=== PATIENT | male | born 2000 | race Two or more races ===

== ENCOUNTER 2021-03-06 13:09 | Inpatient (IN) | payer OTHER ==
[~2021-03-06] VITALS: Ht 180.3 cm; Wt 100.7 kg
[2021-03-06] MEDS ORDERED: LORazepam 2 MG TABLET PO PRN (18:45)
[2021-03-06] MEDS ORDERED: ZOLPIDEM TARTRATE 10 MG TABLET PO PRN (18:45)
[2021-03-06] MEDS ORDERED: HALOPERIDOL 5 MG TABLET PO PRN (18:45)
[2021-03-06 18:53] VITALS: BP 142/86
[2021-03-06] MEDS: TraZODone HCL 100 MG TABLET PO SCH (20:59)
[2021-03-07 07:00] LABS: BASOPHILS % (AUTO) 0.5 % (0.0-2.0); EOSINOPHILS % (AUTO) 2.3 % (1.0-6.0); HEMATOCRIT 45.7 % (41-53); HEMOGLOBIN 15.5 g/dL (13.5-17.5); LYMPHOCYTES # (AUTO) 2.1 K/uL (1.0-4.8); LYMPHOCYTES % (AUTO) 36.9 % (22.0-44.0); MEAN CORPUSCULAR HEMOGLOBIN 29.5 pg (26.0-34.0); MEAN CORPUSCULAR HGB CONC 33.9 G/dL (31.0-37.0); MEAN CORPUSCULAR VOLUME 87 fL (80-100); MONOCYTES # (AUTO) 0.5 K/uL (0.1-1.0); MONOCYTES % (AUTO) 9.3 % (2.0-9.0); NEUTROPHILS # (AUTO) 2.8 K/uL (1.8-7.7); PLATELET COUNT (AUTO) 294 K/uL (150-450); RED BLOOD CELL COUNT(AUTO) 5.25 MIL/uL (4.50-5.90); RED CELL DISTRIBUTION WIDTH 13.1 % (11.5-14.5)
[2021-03-07 07:18] LABS: ALANINE AMINOTRANSFERASE 55 U/L (12-78); ALBUMIN 4.1 g/dL (3.4-5.0); ALKALINE PHOSPHATASE 60 U/L (46-116); ANION GAP 7 mmol/L (8-16); ASPARTATE AMINOTRANSFERASE 21 U/L (15-37); BILIRUBIN,TOTAL 0.8 mg/dL (0.1-1.0); CALCIUM, TOTAL 9.2 mg/dL (8.8-10.5); CARBON DIOXIDE 28 mmol/L (22-29); CHLORIDE 104 mmol/L (98-107); CHOL/HDL RATIO 7.1 (4.2-7.3); CHOLESTEROL 207 mg/dL (131-200); CREATININE 0.98 mg/dL (0.60-1.30); GLOMERULAR FILTR. RATE CALC > 60 mL/min (>60); GLUCOSE,RANDOM 87 mg/dL (70-110); HDL CHOLESTEROL 29 mg/dL (40-60); LDL CHOL (CALC.) 137 mg/dL (0-130); POTASSIUM 4.4 mmol/L (3.5-5.1); SODIUM SERUM 139 mmol/L (136-145); THYROID STIMULATING HORMONE 0.61 uIU/mL (0.36-3.74); TOTAL PROTEIN, SERUM 7.8 g/dL (6.4-8.2); TRIGLYCERIDES 206 mg/dL (15-150); UREA NITROGEN, BLOOD 14 mg/dL (7-18)
[2021-03-07 08:14] VITALS: BP 138/71
[2021-03-07] MEDS: DIVALPROEX SODIUM 250 MG DR TABLET PO SCH ×3 (08:55→17:05)
[2021-03-07 17:01] VITALS: BP 126/68
[2021-03-07] MEDS: TraZODone HCL 100 MG TABLET PO SCH (21:45)
[2021-03-08 08:48] VITALS: BP 145/94
[2021-03-08] MEDS: DIVALPROEX SODIUM 250 MG DR TABLET PO SCH ×3 (09:59→16:24)
[2021-03-08] MEDS ORDERED: TRAZ-257 PO (16:25)
[2021-03-08] MEDS ORDERED: LORA-1000 PO (16:26)
[2021-03-08] MEDS ORDERED: DIVA-111 PO (16:26)
== END 2021-03-08 18:00 | disposition home or self-care (01) | DRG 885 ==
LOC: 3EI 17:54
PROVIDERS: ADMIT Psychiatry & Neurology Child & Adolescent Psychiatry; ATTEND Psychiatry & Neurology Child & Adolescent Psychiatry
DX: F31.4 Bipolar disorder, current episode depressed, severe, without psychotic features (principal); E66.9 Obesity, unspecified; E78.5 Hyperlipidemia, unspecified; F41.0 Panic disorder [episodic paroxysmal anxiety]; K59.00 Constipation, unspecified; Z68.31 Body mass index [BMI] 31.0-31.9, adult
CPT/HCPCS: 80053; 80061; 84443; 85025; 87081